=== PATIENT | female | born 2000 | race Caucasian/White ===

== ENCOUNTER 2022-01-15 09:31 | Emergency (ER) | payer MEDICAID ==
[~2022-01-15] VITALS: Ht 160 cm; Wt 57.6 kg
--- NOTE | 2022-01-15 09:49 | NUR ---
Dr Chowdhury at the bedside for MSE.
[2022-01-15] MEDS ORDERED: IBUPROFEN 600 MG TABLET PO ONE (10:00)
[2022-01-15] MEDS ORDERED: IBUPROFEN 600 MG TABLET ONE (10:00)
[2022-01-15] MEDS ORDERED: IBUP-1955 PO (10:03)
[2022-01-15] MEDS ORDERED: AMOX500C2 PO (10:03)
--- NOTE | 2022-01-15 10:10 | NUR ---
Covid-19 PCR test and Strep test sent to lab.
--- NOTE | 2022-01-15 10:14 | NUR ---
gave pt RX and d/c instructions, pt verbalized understanding
== END 2022-01-15 10:16 | disposition home or self-care (01) ==
LOC: ER 09:31
DX: J02.9 Acute pharyngitis, unspecified (principal); Z20.822 Contact with and (suspected) exposure to COVID-19; J45.909 Unspecified asthma, uncomplicated
CPT/HCPCS: 99283; 36415; U0003; A4663

== ENCOUNTER 2022-02-15 11:27 | Emergency (ER) | payer MEDICAID ==
[~2022-02-15] VITALS: Ht 160 cm; Wt 57.6 kg
[~2022-02-15 11:27] MED LIST: AMOX500C2 PO; IBUP-1955 PO
--- NOTE | 2022-02-15 13:18 | NUR ---
wrapped pt's left calf w/elastic bandage.
--- NOTE | 2022-02-15 14:06 | NUR ---
Gave pt d/c instructions, pt verbalized understanding. Did not want to wait for U/S report.
== END 2022-02-15 14:08 | disposition home or self-care (01) ==
LOC: ER 11:30
DX: M79.662 Pain in left lower leg (principal); I80.252 Phlebitis and thrombophlebitis of left calf muscular vein; J45.909 Unspecified asthma, uncomplicated; Z91.81 History of falling
CPT/HCPCS: A4663

== ENCOUNTER 2022-02-28 08:42 | Emergency (ER) | payer MEDICAID ==
[~2022-02-28] VITALS: Ht 160 cm; Wt 59.0 kg
--- NOTE | 2022-02-28 08:48 | NUR ---
Pt placed in ED bed 5. ER physician at bedside. RT paged.
--- NOTE | 2022-02-28 08:50 | NUR ---
RT at bedside at this time. Pt placed on monitor.
[2022-02-28] MEDS ORDERED: ALBUTEROL SULFATE 2.5 MG/3 ML NEBU ONE (08:52)
[2022-02-28] MEDS ORDERED: LORAZEPAM 1 MG TABLET ONE (08:57)
[2022-02-28] MEDS ORDERED: LORAZEPAM 0.5 MG TABLET PO ONE (09:00)
[2022-02-28] MEDS ORDERED: ALBUTEROL SULFATE 2.5 MG/3 ML NEBU NEB ONE (09:00)
[2022-02-28 09:24] LABS: CREATININE 0.9 mg/dL (0.6-1.3); POTASSIUM 3.7 mmol/L (3.5-5.1)
[2022-02-28 09:29] LABS: BILIRUBIN,TOTAL 1.1 mg/dL (0.2-1.0); TOTAL PROTEIN, SERUM 8.7 g/dL (6.4-8.2)
[2022-02-28 09:33] LABS: HEMATOCRIT 45.4 % (31.2-41.9); MEAN CORPUSCULAR HEMOGLOBIN 29.7 uug (24.7-32.8); MEAN CORPUSCULAR VOLUME 83.8 fL (75.5-95.3); PLATELET COUNT (AUTO) 271 K/uL (179-408)
[2022-02-28 09:56] LABS: *BILIRUBIN,URIN NEGATIVE (NEGATIVE); *BLOOD, URINE 1+ (NEGATIVE); *CLARITY,URINE CLEAR (CLEAR); *COLOR,URINE YELLOW (YELLOW); *KETONES,URINE 3+ (NEGATIVE); *UROBILINOGEN,URINE 0.2 E.U./dl (NORMAL); LEUKOCYTE ESTERASE ,URINE NEGATIVE (NEGATIVE); NITRITE, URINE NEGATIVE (NEGATIVE); PH,URINE 8.5 (5.0-8.0); UGLUCOSE NEGATIVE (NEGATIVE)
[2022-02-28 10:00] LABS: *URINE HCG, QUAL NEG (NEGATIVE)
--- NOTE | 2022-02-28 10:37 | NUR ---
Patient discharged to home in stable condition. Written and verbal after care instructions given. Patient verbalizes understanding of instructions. Stressed follow up or return to ER for worsening s/s.
[2022-02-28 10:38] VITALS: BP 125/76
[2022-02-28 11:38] LABS: BACTERIA,URINE FEW /HPF (NONE SEEN); RBC,URINE NONE SEEN /HPF (0-3); SQUAMOUS EPITHELIAL CELL,UR MODERATE /HPF (NONE SEEN)
== END 2022-02-28 10:30 | disposition home or self-care (01) ==
LOC: ER 08:44
DX: F41.0 Panic disorder [episodic paroxysmal anxiety] (principal); R06.02 Shortness of breath; D72.829 Elevated white blood cell count, unspecified; R05.9 Cough, unspecified; R00.0 Tachycardia, unspecified; J45.909 Unspecified asthma, uncomplicated
CPT/HCPCS: 36415; 71045; 83690; 84703; 85025; 87086; 93005; A4663

== ENCOUNTER 2022-03-30 09:45 | Emergency (ER) | payer MEDICAID ==
[~2022-03-30] VITALS: Ht 160 cm; Wt 59.0 kg
[2022-03-30] MEDS ORDERED: ONDANSETRON ODT 4 MG TAB.RAPDIS SL ONE ×2 (10:30→13:30)
[2022-03-30] MEDS ORDERED: LORAZEPAM 0.5 MG TABLET PO ONE (10:30)
[2022-03-30] MEDS ORDERED: LORAZEPAM 1 MG TABLET ONE (10:41)
[2022-03-30] MEDS ORDERED: ONDANSETRON ODT 4 MG TAB.RAPDIS ONE ×2 (10:41→13:37)
[2022-03-30] MEDS ORDERED: IPRATROPIUM BROMIDE 0.5 MG/2.5 ML NEBU NEB ONE (10:45)
[2022-03-30] MEDS ORDERED: ALBUTEROL SULFATE 2.5 MG/3 ML NEBU NEB ONE (10:45)
[2022-03-30 11:08] LABS: HEMATOCRIT 43.2 % (31.2-41.9); MEAN CORPUSCULAR HEMOGLOBIN 29.7 uug (24.7-32.8); MEAN CORPUSCULAR VOLUME 85.3 fL (75.5-95.3); PLATELET COUNT (AUTO) 288 K/uL (179-408)
[2022-03-30 11:27] LABS: ETHANOL < 3 MG/DL (0-0)
[2022-03-30 11:32] LABS: CREATININE 0.9 mg/dL (0.6-1.3); POTASSIUM 3.9 mmol/L (3.5-5.1)
[2022-03-30 11:34] LABS: ACETAMINOPHEN < 2.0 ug/mL (10-30)
[2022-03-30 11:36] LABS: BILIRUBIN,TOTAL 2.1 mg/dL (0.2-1.0); TOTAL PROTEIN, SERUM 8.1 g/dL (6.4-8.2)
[2022-03-30] MEDS ORDERED: ALBUTEROL SULFATE 2.5 MG/3 ML NEBU ONE (11:46)
[2022-03-30] MEDS ORDERED: IPRATROPIUM BROMIDE 0.5 MG/2.5 ML NEBU ONE (11:47)
[2022-03-30] MEDS ORDERED: ACETAMINOPHEN 325 MG TABLET PO ONE (13:15)
[2022-03-30] MEDS ORDERED: ACETAMINOPHEN 325 MG TABLET ONE (13:37)
== END 2022-03-30 14:31 | disposition home or self-care (01) ==
LOC: ER 09:45
DX: R06.02 Shortness of breath (principal); R11.2 Nausea with vomiting, unspecified; R17 Unspecified jaundice; F41.8 Other specified anxiety disorders; J45.909 Unspecified asthma, uncomplicated
CPT/HCPCS: 80053; 83690; 85025; 84484; 84702; 36415; 93005; 71045; 76705; 94640; 99285; 80299; 80320; J7040; G0480; J3590; Q0162

== ENCOUNTER 2022-06-23 11:09 | Emergency (ER) | payer MEDICAID ==
[~2022-06-23] VITALS: Ht 160 cm; Wt 59.0 kg
--- NOTE | 2022-06-23 11:26 | NUR ---
21 years old female walk in to er c/o bodt itch redness for 3 days worse last night.
[2022-06-23] MEDS ORDERED: FAMOTIDINE. 20 MG/2 ML VIAL IV ONE ×2 (11:30→11:37)
[2022-06-23] MEDS ORDERED: diphenhydrAMINE 50 MG/1 ML VIAL IV ONE (11:30)
[2022-06-23] MEDS ORDERED: IV NORMAL SALINE 1000 ML BAG IV ONE (11:30)
[2022-06-23] MEDS ORDERED: methylPREDNISolone SOD SUCC 125 MG/2 ML VIAL IV ONE (11:30)
[2022-06-23] MEDS ORDERED: methylPREDNISolone SOD SUCC 125 MG/2 ML VIAL ONE (11:37)
[2022-06-23] MEDS ORDERED: diphenhydrAMINE 50 MG/1 ML VIAL ONE (11:38)
[2022-06-23] MEDS ORDERED: PRED20TA PO (11:56)
[2022-06-23] MEDS ORDERED: DIPH25CA83 PO (11:56)
[2022-06-23] MEDS ORDERED: FAMO-132 PO (11:56)
[2022-06-23 12:34] VITALS: BP 110/70
--- NOTE | 2022-06-23 12:35 | NUR ---
patient reassess condition stable d/c home with instructions after care reviewed understood left er ambulatory with steady gait.
== END 2022-06-23 12:39 | disposition home or self-care (01) ==
LOC: ER 11:09
DX: L50.0 Allergic urticaria (principal)
CPT/HCPCS: 99284; 96374; 96375; 96361; J1200; J3490; J2930; J7040; A4663

== ENCOUNTER 2022-09-22 12:12 | Emergency (ER) | payer MEDICAID ==
[~2022-09-22] VITALS: Ht 160 cm; Wt 59.0 kg
[~2022-09-22 12:12] MED LIST changes: +DIPH25CA83 PO; +FAMO-132 PO; +PRED20TA PO
--- NOTE | 2022-09-22 12:25 | NUR ---
seen and examined by MD Caballero
[2022-09-22] MEDS ORDERED: IV NORMAL SALINE 1000 ML BAG IV ONE (12:30)
[2022-09-22] MEDS ORDERED: ONDANSETRON 4 MG/2 ML VIAL IV ONE (12:30)
[2022-09-22 12:31] LABS: HEMATOCRIT 41.6 % (31.2-41.9); MEAN CORPUSCULAR HEMOGLOBIN 28.5 uug (24.7-32.8); MEAN CORPUSCULAR VOLUME 82.8 fL (75.5-95.3); PLATELET COUNT (AUTO) 285 K/uL (179-408)
--- NOTE | 2022-09-22 12:32 | NUR ---
IV inserted 20g on R AC Labs collected UA collected and sent to lab
[2022-09-22] MEDS ORDERED: ONDANSETRON 4 MG/2 ML VIAL ONE (12:34)
[2022-09-22 12:36] LABS: *BLOOD, URINE NEGATIVE (NEGATIVE); *CLARITY,URINE CLEAR (CLEAR); *COLOR,URINE YELLOW (YELLOW); *KETONES,URINE 4+ (NEGATIVE); LEUKOCYTE ESTERASE ,URINE NEGATIVE (NEGATIVE); NITRITE, URINE NEGATIVE (NEGATIVE); UGLUCOSE NEGATIVE (NEGATIVE)
[2022-09-22 12:39] LABS: *BILIRUBIN,URIN 1+ (NEGATIVE)
[2022-09-22 12:45] LABS: RBC,URINE 0-3 /HPF (0-3)
[2022-09-22 12:46] LABS: WBC,URINE 0-3 /HPF (0-3)
[2022-09-22 12:51] LABS: BILIRUBIN,DIRECT 0.4 mg/dL (0.0-0.2); BILIRUBIN,TOTAL 2.5 mg/dL (0.2-1.0); CREATININE 0.8 mg/dL (0.6-1.3); POTASSIUM 3.2 mmol/L (3.5-5.1); TOTAL PROTEIN, SERUM 7.7 g/dL (6.4-8.2)
[2022-09-22 12:59] LABS: *URINE HCG, QUAL NEGATIVE (NEGATIVE)
[2022-09-22 13:34] VITALS: BP 112/80; TEMP 98; O2SAT 99
[2022-09-22] MEDS ORDERED: ONDA4TAB5 PO (13:36)
[2022-09-22] MEDS ORDERED: POTASSIUM CHLORIDE 20 MEQ TAB.PRT.SR ONE (13:38)
[2022-09-22] MEDS ORDERED: POTASSIUM CHLORIDE 20 MEQ TAB.PRT.SR PO ONE (13:45)
== END 2022-09-22 13:50 | disposition home or self-care (01) ==
LOC: ER 12:12
DX: R11.2 Nausea with vomiting, unspecified (principal); J45.909 Unspecified asthma, uncomplicated; Z79.1 Long term (current) use of non-steroidal anti-inflammatories (NSAID); Z79.2 Long term (current) use of antibiotics; Z79.899 Other long term (current) drug therapy
CPT/HCPCS: 99283; 96374; 96361; 80076; 80048; 81001; 84703; 83690; 85025; 36415; J2405; J7040; A4663

== ENCOUNTER 2023-09-15 18:34 | Emergency (ER) | payer BC, MEDICAID ==
[~2023-09-15] VITALS: Ht 160 cm; Wt 59.0 kg
[~2023-09-15 18:34] MED LIST changes: +ONDA4TAB5 PO
[2023-09-15 19:20] VITALS: O2SAT 99
[2023-09-15] MEDS ORDERED: KETOROLAC TROMETHAMINE 30 MG INJ ONE (19:48)
[2023-09-15] MEDS: KETOROLAC TROMETHAMINE 30 MG INJ IM ONE (20:00)
[2023-09-15] MEDS ORDERED: NAPR-1009 PO (21:20)
== END 2023-09-15 21:30 | disposition home or self-care (01) ==
LOC: ER 18:35
DX: M25.551 Pain in right hip (principal); J45.909 Unspecified asthma, uncomplicated; F32.A Depression, unspecified; Z79.899 Other long term (current) drug therapy
CPT/HCPCS: 99285; 72131; 72192; 96372; J1885; A4606; A4663